=== PATIENT | female | born 1970 | race Hispanic/Latino ===

== ENCOUNTER → 2020-07-15 | Outpatient (CLI) | payer BC | END | disposition home or self-care (01) | LOC: RAH 13:19 | PROVIDERS: ATTEND Nurse Practitioner Adult Health | DX: Z12.31 Encounter for screening mammogram for malignant neoplasm of breast (principal); E04.1 Nontoxic single thyroid nodule | CPT/HCPCS: 76536; 77067 ==

== ENCOUNTER → 2020-07-21 | Outpatient (CLI) | payer BC | END | disposition home or self-care (01) | LOC: RAH 10:15 | PROVIDERS: ATTEND Nurse Practitioner Adult Health | DX: N60.02 Solitary cyst of left breast (principal) | CPT/HCPCS: 76641; 77065 ==

== ENCOUNTER → 2022-04-06 | Outpatient (CLI) | payer BC | END | disposition home or self-care (01) | LOC: RAH 12:48 | PROVIDERS: ATTEND Nurse Practitioner Adult Health | DX: Z12.31 Encounter for screening mammogram for malignant neoplasm of breast (principal) | CPT/HCPCS: 77067 ==

== ENCOUNTER → 2023-09-26 | Outpatient (CLI) | payer BC | END | disposition home or self-care (01) | LOC: RAH 10:47 | PROVIDERS: ATTEND Nurse Practitioner Adult Health | DX: Z12.31 Encounter for screening mammogram for malignant neoplasm of breast (principal) | CPT/HCPCS: 77067 ==